=== PATIENT | male | born 1985 | race Caucasian/White ===

== ENCOUNTER 2018-01-20 05:40 | Day surgery (SDC) | payer BC ==
[~2018-01-20] VITALS: Ht 172.7 cm; Wt 95.2 kg
--- NOTE | 2018-01-20 08:58 | NUR ---
01/20/18 0858 Belle Watts 0852 PATIENT ARRIVES TO PACU ASLEEP, DOES NOT RESPOND TO VERBAL OR TACTILE STIMULI. RESP EVEN AND UNLABORED, ORAL AIRWAY IN, MASK AT 10 LITERS. 0853 PATIENT OPENS EYES TO VERBAL STIMULI, DOES NOT ANSWER QUESTIONS. ORAL AIRWAY REMOVED. RESP EVEN AND UNLABORED, MASK DECREASED TO 6 LITERS.
[2018-01-20] MEDS ORDERED: IBUPROFEN600 MG PO (09:11)
[2018-01-20] MEDS ORDERED: OXYCODON-ACETA1 EAC2 PO (09:12)
[2018-01-20] MEDS ORDERED: MAPAP325 MG PO (09:12)
--- NOTE | 2018-01-20 09:47 | NUR ---
LE 0925: PT ARRIVED TO FLOOR FROM PACU, DROWSY BUT TALKING WITH STAFF. RATES PAIN 3/10, DENIES NAUSEA. VITALS STABLE. WATER AND COFFEE GIVEN. FAMILY AT BEDSIDE. NO FURTHER NEEDS AT THIS TIME.CALL LIGHT IN REACH.
--- NOTE | 2018-01-20 11:05 | NUR ---
LE 1030: IN TO CHECK ON PT, PT AWAKE ON PHONE. PT UP TO RESTROOM, TOLERATED WELL. PT RATES PAIN 6/10 WHEN RETURNING TO ROOM. PAIN MEDICATION GIVEN. PT TOLERATING PUDDING AND PO WELL. NO FURTHER NEEDS AT THIS TIME. FAMILY IN ROOM, CALL LIGHT IN REACH.
--- NOTE | 2018-01-20 11:07 | NUR ---
IN TO CHECK ON PT, PT UP TO RESTROOM. TOLERATED WELL. PT STATES HE IS READY TO GO HOME. IV DC'D. PT ABLE TO DRESS BY SELF. NO FURTHER NEEDS AT THIS TIME, CALL LIGHT IN REACH.
--- NOTE | 2018-01-22 10:07 | OR ---
[facility] [address], [place] [address] Signed DATE OF OPERATION: 01/20/2018 SURGEON: Edgar Santo MD PREOPERATIVE DIAGNOSIS: Recurrent left inguinal hernia. POSTOPERATIVE DIAGNOSIS: Recurrent direct left inguinal hernia. PROCEDURE: Repair of recurrent left inguinal hernia with implantation of Prolene mesh (underlay technique). ANESTHESIA: General LMA, Edgar Salinas CRNA and local 20 mL of 0.25% Marcaine with epinephrine. INDICATION: This 32-year-old white man is a patient of TULIO Newman and underwent a left inguinal hernia repair at age 13 elsewhere. There is no mention of implantation of mesh. His operation was performed in [place] by Dr. Elizabeth. He has noted left groin pain particularly with straining and an ultrasound was performed by Mendez Collins, which confirmed a recurrent hernia in the left groin. Clinical examination does not easily demonstrate a hernia particularly, though there is an impulse at the internal ring. A larger impulse is noted in the right side. He has no symptoms on the right side. Given his pain and findings on ultrasound, repair of recurrent inguinal hernia has been offered. He understands the risks of bleeding, infection, and recurrence and wished to proceed. FINDINGS: Fibrosis as expected was noted. An ilioinguinal nerve branch was identified and well preserved. Scarring of the floor was noted as would be expected and the cord structures were otherwise normal. There was a direct hernia at the internal ring. Two Prolene sutures lay in the bed of the floor, not particularly secured. A lipoma of the cord was noted lateral to it and was excised. The defect of the internal ring represented a direct inguinal hernia. Implantation of Prolene mesh in underlay technique was undertaken to repair the hernia. There were no complications. DESCRIPTION OF PROCEDURE: The patient was brought to the operating room, given a general LMA-type anesthetic. Electronically Signed By: EDGAR SANTO MD 01/22/18 1007 PATIENT NAME: MARY LOU LAWSON OPERATIVE REPORT DATE OF : 85 REPORT #: [id number] PHYSICIAN: EDGAR SANTO MD PCP: KIM TROY PA-C REPORT IS CONFIDENTIAL AND NOT TO BE RELEASED WITHOUT AUTHORIZATION [facility] [address], [place] [address] Signed Preoperative antibiotic Ancef was given. Sequential compression device stockings were used and heparin subcutaneously administered. The abdomen was clipped and prepared with chlorhexidine solution and draped sterilely. A very faint incision from the past was noted and this was used for incision once again. It was relatively small incision. Dissection was carried through the subcutaneous tissue sharply. The external oblique was identified and incised with all due care as it was somewhat fibrotic. Incision was extended to the external ring. The fibrotic external oblique fascia was gently elevated and dissected sharply from the underlying cord structures and an ilioinguinal nerve branch was identified and dissected free from the cremasteric muscle fibers as well. Similarly, the lateral leaf of the external oblique was freed. The nerve was freed more fully and reflected around the external oblique out of the way. Further dissection with blunt and minimal amounts of electrocautery was used to mobilize the cord itself. This was mobilized from the floor more fully. The floor of the inguinal canal was generally alvarez and somewhat fibrotic. There were 2 Prolene sutures noted and what may have previously been the internal ring. There was a large space accommodating 1 to 2 finger breaths over the cord emanated laterally. There was a lipoma of the cord laterally, this was dissected free from the cord and secured at its base with 2-0 Vicryl ties and amputated and passed for pathology. A Beth drain was applied around the cord itself. The hernia represented a direct hernia at the internal ring. There was no hernia sac proper. Options of management included simple plication of the ring, but given the fibrotic nature of the surrounding soft tissue, it was unlikely that this would be reapproximated with any beneficial effect and therefore implantation of Prolene mesh was deemed most appropriate. The floor of the inguinal canal (fascia edge of the transversalis) was incised with electrocautery and the properitoneal space bluntly . The segment of Prolene mesh was cut to an elliptical configuration and secured in an underlay technique with interrupted 2-0 Prolene suture. A defect was cut in the graft to accommodate the cord structures. Tails of the graft were secured laterally. A snug but not excessively tight aperture at the cord was noted. 20 mL of 0.25% Marcaine with epinephrine injected locally. The cord and the ilioinguinal nerve were replaced into the canal and the external oblique reapproximated with running 2-0 Vicryl suture. Additional local anesthetic was administered. Jo's layer was reapproximated with interrupted 2-0 Vicryl suture. The skin was then closed with running subcuticular 3-0 Vicryl. Steri-Strips were applied as was Mepilex, silver sponge dressing, and an OpSite. The patient tolerated the procedure well. Blood loss was minimal. Complications none. Electronically Signed By: EDGAR SANTO MD 01/22/18 [facility] PATIENT NAME: MARY LOU LAWSON OPERATIVE REPORT DATE OF : 85 REPORT #: [id number] PHYSICIAN: EDGAR SANTO MD PCP: KIM TROY PA-C REPORT IS CONFIDENTIAL AND NOT TO BE RELEASED WITHOUT AUTHORIZATION [address] [place], [place] [address] Signed MD TRISH Gil/APTRICIAL /[id number] cc: MD Kim Apple PA-C Copies: LEO ELIZABETH MD, CHLOE K PA-C ~ Electronically Signed By: EDGAR SANTO MD 01/22/18 1007 PATIENT NAME: MARY LOU LAWSON OPERATIVE REPORT DATE OF : 85 REPORT #: [id number] PHYSICIAN: EDGAR SANTO MD PCP: KIM TROY PA-C REPORT IS CONFIDENTIAL AND NOT TO BE RELEASED WITHOUT AUTHORIZATION
== END 2018-01-20 11:15 | disposition home or self-care (01) ==
LOC: DS 05:40
PROVIDERS: Surgery
PROC: 0YU60JZ Supplement Left Inguinal Region with Synthetic Substitute, Open Approach (ICD-10-PCS; principal; 2018-01-20 06:45)
DX: K40.91 Unilateral inguinal hernia, without obstruction or gangrene, recurrent (principal); D17.6 Benign lipomatous neoplasm of spermatic cord; Z98.890 Other specified postprocedural states
CPT/HCPCS: 00830; C1781; J0690; J1100; J1644; J1885; J2250; J2405; J2704; J2765; J3010; J7120

== ENCOUNTER 2020-08-27 10:56 | Emergency (ER) | payer BC ==
[~2020-08-27] VITALS: Ht 182.9 cm; Wt 99.8 kg
[~2020-08-27 10:56] MED LIST: IBUPROFEN600 MG PO; MAPAP325 MG PO; OXYCODON-ACETA1 EAC2 PO
[2020-08-27] MEDS ORDERED: NORCO 7.5-3251 EACH PO (11:44)
== END 2020-08-27 12:58 | disposition home or self-care (01) ==
LOC: ED 10:56
DX: S43.402A Unspecified sprain of left shoulder joint, initial encounter (principal); M75.32 Calcific tendinitis of left shoulder; X50.9XXA Other and unspecified overexertion or strenuous movements or postures, initial encounter
CPT/HCPCS: 73030; 99283-25